=== PATIENT | male | born 1970 | race Caucasian/White ===

== ENCOUNTER → 2019-06-02 | Outpatient (CLI) | payer OTHER ==
[~2019-06-02] MED LIST: ADDERALL 20 MG20 MG PO; AMITRIPTYLINE H25 M2 PO; BYSTOLIC 5 MG5 M1 PO; NEURONTIN 300300 M1 PO
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
== END ==
LOC: M.PC 08:30
DX: G89.29 Other chronic pain (principal); I10 Essential (primary) hypertension; M19.90 Unspecified osteoarthritis, unspecified site; Z79.899 Other long term (current) drug therapy

== ENCOUNTER → 2019-08-18 | Outpatient (CLI) | payer OTHER ==
[~2019-08-18] MED LIST changes: +BACLOFEN 10MG T10 MG PO
--- NOTE | ~2019-08-18 | PAINCON ---
[address] [address] PAIN MANAGEMENT CONSULTATION Name: DEVON GROVES Room: [facility] MottLuciaDeanLucia#: [id number] Admission: 08/18/19 Attend Phys: Anirudh Salinas MD Discharge: Date of : 72 Report #: [id number] THIS REPORT FOR: //name// CC: Jason Barahona DATE OF SERVICE: 08/18/2019 CHIEF COMPLAINT: Continued neck pain and low and mid back pain. HISTORY: The patient is a 49-year-old gentleman who has been seen in the pain clinic because of pain and discomfort in his neck. The patient has pain in his neck and back, which limits his ability to stay gainfully employed. The patient works in [employer]. Notes that after working in the morning at about noon, pain becomes so problematic he is forced to stop. He is about to be seen by a neurosurgeon. Does have some pain and discomfort down into his arms and question whether or not he has a pinched nerve in his elbow or below or whether it is from his neck. He does have some narrowing in the neck area. He has not been able to undergo physical therapy. Did note some episode about 2-3 weeks ago where he had some difficulty walking. This lasted for a few days where he felt some increased weakness. He states that he did have to lift his leg to move it with his hands. He is still having difficulty sleeping. He has used muscle relaxant, but finds that these medications sometimes make him feel too sleepy. This was with Flexeril. He has been started on duloxetine 30 mg b.i.d. He is self-employed. With this pain curtailing his activity, it is more difficult to remain gainfully employed. ALLERGIES: No known drug allergies. CURRENT MEDICATIONS: Adderall 20 mg b.i.d., gabapentin 300 mg t.i.d., Bystolic 5 mg, total 10 mg daily. PAIN CLINIC ASSESSMENT/PQRS: 1. The patient is not being treated for osteoarthritis or rheumatoid arthritis. Does have some arthritic changes in his neck. 2. Height 6 feet, weight 230 pounds, BMI is 32.0. 3. Blood pressure 143/80, heart rate 78, respiratory rate 16, room air saturation 96%. 4. Pain intensity 12/22. 5. Fall history: The patient has not fallen in the last 3 months. 6. Blood thinner. The patient is not on a blood thinning medication. 7. Hypertension. The patient is being treated for hypertension. 8. Opioids greater than 6 weeks. The patient receives his medications from his primary physician. 9. Risk assessment tool, [place] [address] PAIN MANAGEMENT CONSULTATION Name: GERMAINDEVON [facility] [id number] Admission: 08/18/19 Attend Phys: Anirudh Salinas MD Discharge: Date of : 72 Report #: [id number] 10. Functional assessment tool reviewed. 11. Recreational drug use: The patient denies. 12. Alcohol: The patient rarely drinks alcoholic beverages. 13. Tobacco: The patient denies use of tobacco. PHYSICAL EXAMINATION: GENERAL: The patient is a well-developed, well-nourished white male. Appears his stated age. He is alert and oriented x 3. His affect is appropriate. Speech is fluent. HEENT: Normocephalic, atraumatic. Extraocular eye muscles intact. NECK: Without adenopathy or JVD. Cervical compression in the past has caused to have pain that radiates between his shoulder blades in the back and down into the area of rhomboids. Notes some pain and discomfort in his biceps tendon and forearm. Has had some pain, which radiated down from his neck into the left shoulder and into his ring finger on the right hand. HEART: Regular rate. LUNGS: Clear to auscultation. ABDOMEN: Nontender. MUSCULOSKELETAL: Without significant scoliosis, kyphosis or lordosis. Does somewhat feel that he is off balance. IMPRESSION: 1. Chronic pain involving the upper back as well as some pain in the cervical area with pain that radiates down into his right arm. 2. Hypertension. 3. Stomach problems. 4. Emotional problems. 5. Joint disease/arthritis. RECOMMENDATIONS: The patient has not been able to go to physical therapy. That option still remains open. He states that he is going to see a neurosurgeon. The orthopedic doctor feels that the problem might be in his neck as opposed to at the elbow or hand secondary to carpal tunnel problems. We will have the patient try baclofen 10 mg 1 p.o. t.i.d. Hopefully, he will find this medication is helpful with muscle spasms with less sedation. States that he does not have sleep apnea. He does not feel that this is what is causing him to be tired and sleepy during the day. He will continue with the Elavil. He will continue with meloxicam nonsteroidal anti-inflammatory medication. He will also continue with gabapentin 300 mg t.i.d. The patient states that he has been started on Cymbalta 60 mg daily. His MRI shows some narrowing in the cervical area with AP diameter of 6.6 mm at the C3-C4; 7 mm at C5-C6 and 8 mm at C6-C7. Possibility of a cervical epidural steroid injection was again offered to the patient. He will follow up after he visits with the neurosurgeon. A script for medication for baclofen 10 mg 1 p.o. t.i.d. [place] [address] PAIN MANAGEMENT CONSULTATION Name: DEVON GROVES Room: [facility]#: [id number] Admission: 08/18/19 Attend Phys: Anirudh Salinas MD Discharge: Date of : 72 Report #: [id number] We would like to thank you for letting us participate in his care. We hope he continues to improve. By: [id number] Salinas MD /sulema
== END ==
LOC: M.PC 04:58
DX: M54.2 Cervicalgia (principal); M54.9 Dorsalgia, unspecified; I10 Essential (primary) hypertension; M19.90 Unspecified osteoarthritis, unspecified site